=== PATIENT | male | born 1990 | race Caucasian/White ===

== ENCOUNTER 2017-05-24 12:38 | Emergency (ER) | payer SELFPAY ==
[~2017-05-24] VITALS: Ht 175.3 cm; Wt 84.8 kg
--- OUTSIDE RECORDS SUMMARY | 2017-05-24 12:47 | XMS REPORT ---
Author Author SUZY De La Cruz [facility] Address Unknown Care Team Providers Care Newswriter Name Role Phone SUZY De La Cruz Unavailable PROBLEMS Unknown Problems ALLERGIES No Known Allergies SOCIAL HISTORY Never Assessed PLAN OF CARE Activity Details Follow Up prn Reason:JUN VITAL SIGNS Blood pressure systolic 131 mmHg 2016-09-29 Blood pressure diastolic 88 mmHg 2016-09-29 MEDICATIONS No Known Medications RESULTS No Results PROCEDURES Procedure Date Ordered Result Body Site SURG REMOVAL ERUPTED TOOTH Sep 29, 2016 IMMUNIZATIONS No Known Immunizations
--- OUTSIDE RECORDS SUMMARY | 2017-05-24 12:47 | XMS REPORT | Referral Summary ---
Author Author [facility] Organization [facility] Address Unknown Phone Unavailable Care Team Providers Care Rn Internal Medicine Name Role Phone No PCP, Pt States PCP Encounter VC Date(s): 01/13/15 - 01/13/15 [facility] [address] [place] [address] Discharge Diagnosis: Acute upper respiratory infection Final: ACUTE UPPER RESPIRATORY INFECTIONS OF UNSPECIFIED SITE Discharge Disposition: 01-Home or Self Care Attending Physician: Gabriel Lama MD Admitting Physician: Gabriel Lama MD Vital Signs Most recent to 1 oldest [Reference Range]: Temperature Oral 36.8 degC [35.8-37.3 degC] (01/13/15 5:44 PM) Peripheral Pulse 119 bpm Rate [60-100 bpm] *HI* (01/13/15 1:43 PM) Heart Rate Monitored 107 bpm [60-100 bpm] *HI* (01/13/15 5:44 PM) Respiratory Rate 16 br/min [14-20 br/min] (01/13/15 5:44 PM) Blood Pressure 144/89 mmHg [90-140/60-90 mmHg] *HI* (01/13/15 1:43 PM) SpO2 99 % (01/13/15 5:44 PM) Problem List Condition Effective Dates Status Health Status Informant Anxiety(Confirmed) Active patient UTI (urinary tract Active infection)(Confirmed ) Allergies, Adverse Reactions, Alerts Substance Reaction Severity Status Haldol Dystonia lenticularis Active Medications CeleXA Oral, Daily, 0 Refill(s) Start Date: 03/22/14 Status: Ordered Results Urinalysis Most recent to 1 oldest [Reference Range]: UA Color Yellow (01/13/15 4:46 PM) UA Appear Clear (01/13/15 4:46 PM) UA pH [5.0-8.0] 6.5 (01/13/15 4:46 PM) UA Leuk Est Negative [Negative] (01/13/15 4:46 PM) UA Nitrite Negative [Negative] (01/13/15 4:46 PM) UA Protein Negative [Negative] (01/13/15 4:46 PM) UA Glucose Negative [Negative] (01/13/15 4:46 PM) UA Ketones Negative [Negative] (01/13/15 4:46 PM) UA Urobilinogen Negative [<1.0] (01/13/15 4:46 PM) UA Bili [Negative] Negative (01/13/15 4:46 PM) UA Blood [Negative] Negative (01/13/15 4:46 PM) UA Spec Grav 1.015 [1.003-1.030] (01/13/15 4:46 PM) Type Clean Catch (01/13/15 4:46 PM) Immunizations No data available for this section Procedures No data available for this section Social History Social History Type Response Smoking Status Current every day smoker; Type: Cigarettes; Tobacco use per day: 1 Pack Assessment and Plan No data available for this section
--- OUTSIDE RECORDS SUMMARY | 2017-05-24 12:47 | XMS REPORT ---
Author Author SUZY De La Cruz [facility] Address Unknown Care Team Providers Care Shim Plug Cutter Name Role Phone SUZY De La Cruz Unavailable PROBLEMS Unknown Problems ALLERGIES No Known Allergies SOCIAL HISTORY Never Assessed PLAN OF CARE Activity Details Follow Up 1 Week Reason:TE #14 VITAL SIGNS Blood pressure systolic 116 mmHg 2016-09-21 Blood pressure diastolic 72 mmHg 2016-09-21 MEDICATIONS Medication Instructions Dosage Frequency Start Date End Date Duration Status ibuprofen Active Amoxicillin 500 MG Orally every 6 hrs 1 tablet 6h 20 Sep, 2016 7 days Active RESULTS No Results PROCEDURES Procedure Date Ordered Result Body Site LTD ORAL EVALUATION - PROBLEM FOCUS Sep 21, 2016 INTRAORL-PERIAPICAL 1 FILM [id number] Sep 21, 2016 IMMUNIZATIONS No Known Immunizations
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
--- NOTE | 2017-05-24 14:07 | ED Psychosocial ---
General Chief Complaint: Detox Stated Complaint: ASSESSMENT FOR ATC,ETOH Nursing Triage Note: AMB TO ROOM WANTING DETOX FROM ALCOHOL TOOK 1 PEROCET AND XANAX DIRECTOR HEART Source: patient Exam Limitations: intoxication (sedated with slurred speech.) History of Present Illness Time seen by provider: 13:20 Initial Comments 27 yo male patient presents to the ED with c/o wanting detox from benzo's, narcotics, and ETOH. Patient is sedated and has slurred speech. Poor historian. Patient states he drinks occasionally and has not had any alcohol for the last 2-3 days. Patient reports he has to get his drugs from the street , because no one will give him prescriptions for narcotics and benzo's due to "him looking like a druggy." Patient reports he took 1 percocet and 1 xanax "early this morning." Reports [facility], but needs "checked out first." Patient reports his sponsor brought him to the ED. Reports he has not used marijuana for "a really long time." Denies IV drug use , meth, cocaine, or heroin. Denies suicidal or homicidal ideation. Severity: moderate Allergies and Home Medications Allergies Coded Allergies: No Known Drug Allergies (Unverified , 05/24/17) Constitutional: no symptoms reported EENTM: no symptoms reported Respiratory: No cough, No short of breath Cardiovascular: No chest pain, No palpitations, No syncope Gastrointestinal: No abdominal pain, No constipation, No diarrhea, No nausea, No vomiting Genitourinary: no symptoms reported Musculoskeletal: other ("chronic pain everywhere" per patient.) Skin: no symptoms reported Psychiatric/Neurological: See HPI, Denies Anxiety, Denies Depressed, Denies Emotional Problems, Denies Headache, Denies Numbness, Denies Paresthesia, Denies Seizure, Denies Tingling, Denies Weakness All Other Systems Reviewed Negative Unless Noted: Yes (Negative excepted noted.) Past Ikqrfhy-Nlkbeu-Incptg Hx Patient Social History Alcohol Use: Regular Use (reported to RN regular use. now reports to this examiner occasional ETOH use.) Recreational Drug Use: Yes Drug of Choice: percocet and xanax Smoking Status: Current Everyday Smoker Recent Foreign Travel: No Contact w/Someone Who Travel: No Recent Infectious Disease Expo: No Seasonal Allergies Seasonal Allergies: No Surgeries History of Surgeries: No Respiratory History of Respiratory Disorde: No Cardiovascular History of Cardiac Disorders: No Neurological History of Neurological Disord: No Genitourinary History of Genitourinary Disor: No Gastrointestinal History of Gastrointestinal Di: No Musculoskeletal History of Musculoskeletal Dis: No Endocrine History of Endocrine Disorders: No Psychosocial History of Psychiatric Problem: No Integumentary History of Skin or Integumenta: No Reviewed Nursing Assessment Reviewed/Agree w Nursing PMH: Yes Family Medical History Significant Family History: No Pertinent Family Hx Physical Exam Vital Signs Vital Sign - Last 12Hours 05/24/17 13:18 Temp 98.0 Pulse 66 Resp 18 B/P (MAP) 149/101 Capillary Refill : Less Than 3 Seconds General Appearance: WD/WN, no apparent distress, other (sedated, arouses to verbal stimuli. speech slurred.) HEENT: PERRL/EOMI, normal ENT inspection, TMs normal, pharynx normal Neck: supple, normal inspection Respiratory: lungs clear, normal breath sounds, no respiratory distress, no accessory muscle use Cardiovascular: normal peripheral pulses, regular rate, rhythm, no edema, no murmur Peripheral Pulses: 2+ Dorsalis Pedis (R), 2+ Left Dors-Pedis (L), 2+ Radial Pulses (R), 2+ Radial Pulses (L) Gastrointestinal: normal bowel sounds, non tender, soft, no organomegaly Extremities: no pedal edema, no calf tenderness, normal capillary refill Neurologic/Psychiatric: engine emission technician II-XII nml as tested, no motor/sensory deficits, oriented x 3, depressed affect, other (sedated and falls asleep easily. arouses to verbal stimuli. slurred speech.) Appearance/Memory: no memory impairment, disheveled, impaired insight Behavior/Eye Contact: cooperative, avoids eye contact, decreased rate of speech Thoughts/Hallucinations: no apparent hallucination, obsessive Skin: normal color, warm/dry Progress/Results/Core Measures Results/Orders Lab Results Laboratory Tests Test 05/24/17 14:15 05/24/17 16:03 Range/Units White Blood Count 7.0 4.3-11.0 10^3/uL Red Blood Count 4.49 4.35-5.85 10^6/uL Hemoglobin 14.1 13.3-17.7 G/DL Hematocrit 39 L 40-54 % Mean Corpuscular Volume 88 80-99 FL Mean Corpuscular Hemoglobin 31 25-34 PG Mean Corpuscular Hemoglobin Concent 36 32-36 G/DL Red Cell Distribution Width 12.0 10.0-14.5 % Platelet Count 231 130-400 10^3/uL Mean Platelet Volume 9.9 7.4-10.4 FL Neutrophils (%) (Auto) 63 42-75 % Lymphocytes (%) (Auto) 25 12-44 % Monocytes (%) (Auto) 9 0-12 % Eosinophils (%) (Auto) 3 0-10 % Basophils (%) (Auto) 0 0-10 % Neutrophils # (Auto) 4.5 1.8-7.8 X 10^3 Lymphocytes # (Auto) 1.8 1.0-4.0 X 10^3 Monocytes # (Auto) 0.6 0.0-1.0 X 10^3 Eosinophils # (Auto) 0.2 0.0-0.3 10^3/uL Basophils # (Auto) 0.0 0.0-0.1 10^3/uL Sodium Level 140 135-145 MMOL/L Potassium Level 3.6 3.6-5.0 MMOL/L Chloride Level 105 98-107 MMOL/L Carbon Dioxide Level 25 21-32 MMOL/L Anion Gap 10 5-14 MMOL/L Blood Urea Nitrogen 9 7-18 MG/DL Creatinine 0.81 0.60-1.30 MG/DL Estimat Glomerular Filtration Rate > 60 BUN/Creatinine Ratio 11 Glucose Level 91 70-105 MG/DL Calcium Level 9.3 8.5-10.1 MG/DL Total Bilirubin 1.0 0.1-1.0 MG/DL Aspartate Amino Transf (AST/SGOT) 72 H 5-34 U/L Alanine Aminotransferase (ALT/SGPT) 134 H 0-55 U/L Alkaline Phosphatase 75 40-136 U/L Total Protein 7.0 6.4-8.2 GM/DL Albumin 4.1 3.2-4.5 GM/DL TSH [place] Testing 1.54 0.35-4.94 UIU/ML Salicylates Level < 5.0 L 5.0-20.0 MG/DL Acetaminophen Level < 10 L 10-30 UG/ML Serum Alcohol < 10 <10 MG/DL Urine Color RUDY H Urine Clarity CLEAR Urine pH 5 5-9 Urine Specific [place] 1.025 H 1.016-1.022 Urine Protein 1+ H NEGATIVE Urine Glucose (UA) NEGATIVE NEGATIVE Urine Ketones NEGATIVE NEGATIVE Urine Nitrite NEGATIVE NEGATIVE Urine Bilirubin NEGATIVE NEGATIVE Urine Urobilinogen 1 NORMAL MG/DL Urine Leukocyte Esterase 1+ H NEGATIVE Urine RBC (Auto) NEGATIVE NEGATIVE Urine RBC RARE /HPF Urine WBC RARE /HPF Urine Crystals NONE /LPF Urine Bacteria NEGATIVE /HPF Urine Casts NONE /LPF Urine Mucus LARGE H /LPF Urine Other FEW SPERM H /HPF Urine Culture Indicated NO Urine Opiates Screen NEGATIVE NEGATIVE Urine Oxycodone Screen NEGATIVE NEGATIVE Urine Methadone Screen NEGATIVE NEGATIVE Urine Propoxyphene Screen NEGATIVE NEGATIVE Urine Barbiturates Screen NEGATIVE NEGATIVE Ur Tricyclic Antidepressants Screen NEGATIVE NEGATIVE Urine Phencyclidine Screen NEGATIVE NEGATIVE Urine Amphetamines Screen POSITIVE H NEGATIVE Urine Methamphetamines Screen POSITIVE H NEGATIVE Urine Benzodiazepines Screen POSITIVE H NEGATIVE Urine Cocaine Screen NEGATIVE NEGATIVE Urine Cannabinoids Screen POSITIVE H NEGATIVE My Orders Orders - GENESIS QUEZADA Ua Culture If Indicated (05/24/17 13:32) Cbc With Automated Diff (05/24/17 13:32) Comprehensive Metabolic Panel (05/24/17 13:32) Alcohol (05/24/17 13:32) Drug Screen Stat (Urine) (05/24/17 13:32) Acetaminophen (05/24/17 13:32) Salicylate (05/24/17 13:32) Ekg Tracing (05/24/17 13:32) Thyroid Analyzer (05/24/17 13:32) Ibuprofen Tablet (Motrin Tablet) (05/24/17 15:04) Vital Signs/I&O Vital Sign - Last 12Hours 05/24/17 13:18 Temp 98.0 Pulse 66 Resp 18 B/P (MAP) 149/101 Blood Pressure Mean: 117 ECG Initial ECG Impression Date: May 24, 2017 Initial ECG Impression Time: 13:51 Initial ECG Rate: 62 Initial ECG Rhythm: Normal Sinus Initial ECG Intervals: Normal Initial ECG Impression: Normal Initial ECG Comparisson: No Previous ECG Available Comment NSR. No STEMI noted. ECG reviewed and discussed with Dr. Palafox. Departure Impression Impression: Primary Impression: Polysubstance abuse Additional Impression: Methamphetamine abuse Disposition: 01 HOME, SELF-CARE Condition: Improved Departure-Patient Inst. Decision time for Depature: 16:35 Referrals: NO,LOCAL PHYSICIAN (PCP) Primary Care Physician Patient Instructions: Drug Abuse and Drug Addiction (DC) Add. Discharge Instructions: All discharge instructions reviewed with patient and/or family. Voiced understanding. Tylenol extra strength [id number] as directed for pain if needed. Ibuprofen 800 mg by mouth every 8 hours as needed for pain. Push fluids. Follow-up with your primary care provider for recheck as an outpatient. Go directly to [facility] from the emergency department. Return to the emergency department for worsened symptoms, thoughts of harming yourself , thoughts of harming other, or any other concerns. Work/School Note: Local [employer] Staff Listing GENESIS QUEZADA May 24, 2017 14:07
[2017-05-24 14:24] LABS: BASOPHILS % (AUTO) 0 % (0-10); EOSINOPHILS # (AUTO) 0.2 10^3/uL (0.0-0.3); EOSINOPHILS % (AUTO) 3 % (0-10); LYMPHOCYTES # (AUTO) 1.8 X 10^3 (1.0-4.0); LYMPHOCYTES % (AUTO) 25 % (12-44); MEAN CORPUSCULAR HEMOGLOBIN 31 PG (25-34); MEAN CORPUSCULAR HGB CONC 36 G/DL (32-36); MEAN CORPUSCULAR VOLUME 88 FL (80-99); MEAN PLATELET VOLUME 9.9 FL (7.4-10.4); MONOCYTES # (AUTO) 0.6 X 10^3 (0.0-1.0); MONOCYTES % (AUTO) 9 % (0-12); NEUTROPHILS # (AUTO) 4.5 X 10^3 (1.8-7.8); NEUTROPHILS % (AUTO) 63 % (42-75); PLATELET COUNT 231 10^3/uL (130-400); RED BLOOD COUNT 4.49 10^6/uL (4.35-5.85)
[2017-05-24 14:42] LABS: ALANINE AMINOTRANSFERASE 134 U/L (0-55); ALBUMIN 4.1 GM/DL (3.2-4.5); ALCOHOL < 10 MG/DL (<10); ANION GAP 10 MMOL/L (5-14); ASPARTATE AMINO TRANSFERASE 72 U/L (5-34); BLOOD UREA NITROGEN 9 MG/DL (7-18); BUN/CREATININE RATIO 11; CALCIUM 9.3 MG/DL (8.5-10.1); CARBON DIOXIDE 25 MMOL/L (21-32); CHLORIDE 105 MMOL/L (98-107); CREATININE SERUM 0.81 MG/DL (0.60-1.30); GFR ESTIMATED > 60; GLUCOSE 91 MG/DL (70-105); POTASSIUM 3.6 MMOL/L (3.6-5.0); SALICYLATE < 5.0 MG/DL (5.0-20.0); SODIUM 140 MMOL/L (135-145)
[2017-05-24 14:45] LABS: ACETAMINOPHEN < 10 UG/ML (10-30)
[2017-05-24] MEDS ORDERED: IBUPROFEN 800 MG (MOTRIN) TAB PO STA (15:04)
[2017-05-24 16:09] LABS: BILIRUBIN,URINE NEGATIVE (NEGATIVE); KETONES,URINE NEGATIVE (NEGATIVE); LEUKOCYTE ESTERASE ,URINE 1+ (NEGATIVE); NITRITE,URINE NEGATIVE (NEGATIVE); PH,URINE 5 (5-9); PROTEIN,URINE 1+ (NEGATIVE); UROBILINOGEN,URINE 1 MG/DL (NORMAL)
[2017-05-24 16:30] LABS: WBC,URINE RARE /HPF
[2017-05-24 16:40] VITALS: BP 130/89
== END 2017-05-24 16:40 | disposition home or self-care (01) ==
LOC: ER 12:44
DX: F15.10 Other stimulant abuse, uncomplicated (principal); F11.90 Opioid use, unspecified, uncomplicated; F17.200 Nicotine dependence, unspecified, uncomplicated
CPT/HCPCS: 36415; 80053; 80306; 80320; 80329; 81000; 84443; 85025; 93005